=== PATIENT | male | born 1995 | race Caucasian/White ===

== ENCOUNTER 2020-01-30 12:54 | Emergency (ER) | payer BC, OTHER ==
[~2020-01-30] VITALS: Ht 175.2 cm; Wt 79.3 kg
[2020-01-30 13:01] VITALS: BP 134/96
[2020-01-30] MEDS ORDERED: CEPH500T PO (13:23)
--- NOTE | 2020-01-30 13:23 | ED Upper Extremity ---
General Stated Complaint: L ARM WOUND Source: patient Exam Limitations: no limitations History of Present Illness Date Seen by Provider: Jan 30, 2020 Time Seen by Provider: 13:01 Initial Comments To ER with a laceration to the volar radial side left wrist. He was gutting a deer when his knife slipped. Tetanus is up-to-date. Onset: just prior to arrival Severity: mild Pain/Injury Location: left wrist Modifying Factors: Worse With Movement Allergies and Home Medications Home Medications Cephalexin 500 Mg Tablet, 500 MG PO TID Prescribed by: CARLEY PORRAS on 01/30/20 1323 Patient Home Medication List Home Medication List Reviewed: Yes Review of Systems Constitutional: see HPI EENTM: see HPI Respiratory: no symptoms reported Cardiovascular: no symptoms reported Genitourinary: no symptoms reported Musculoskeletal: no symptoms reported Skin: no symptoms reported Psychiatric/Neurological: No Symptoms Reported Past Lnvpztg-[id number]-Nvvgdy Hx Patient Social History Recent Foreign Travel: No Contact w/Someone Who Travel: No Physical Exam Vital Signs Capillary Refill : Height, Weight, BMI Height: '" Weight: lbs. oz. kg; BMI Method: General Appearance: WD/WN, no apparent distress Respiratory: no respiratory distress, no accessory muscle use Shoulder: normal inspection, non-tender Elbow/Forearm: normal inspection, non-tender Wrist: Yes soft tissue tenderness (There is a 1 cm laceration without active bleeding to the volar radial side of the left wrist. Depth is dissecting his tissue. He has normal sensation and motor function of the radial nerve distribution of the dorsal aspect of the hand including the thumb and pointer finger. Normal wrist extension and flexion. Strong radial pulse. No evidence of large hematoma.) Hand: normal inspection, Left Neurologic/Tendon: normal sensation, normal motor functions, normal tendon functions Neurologic/Psychiatric: alert, normal mood/affect, oriented x 3 Skin: normal color, warm/dry This laceration was anesthetized with 2 mL of 1% lidocaine without epinephrine. Scrubbed with chlorhexidine/saline solution then irrigated with the same. Closed with 3 simple interrupted sutures size 5-0 Prolene. Departure Impression Primary Impression: Wrist laceration Qualified Codes: S61.512A - Laceration without foreign body of left wrist, initial encounter Disposition: HOME, SELF-CARE Condition: Stable Departure-Patient Inst. Decision time for Depature: 13:22 Referrals: NO,LOCAL PHYSICIAN (PCP/Family) Primary Care Physician Patient Instructions: Laceration Repair With Stitches (DC) Add. Discharge Instructions: 1. Stitches should be removed in about 7 days. You can shower letting water run over this starting tonight but do not soak it in water such as a hot tub bathtub or swimming pool until the stitches have been removed. Scripts Cephalexin (Cephalexin) 500 Mg Tablet 500 MG PO TID, #9 TAB 0 Refills Prov: CARLEY PORRAS APRN 01/30/20 CARLEY PORRAS APRN Jan 30, 2020 13:23
== END 2020-01-30 13:34 | disposition home or self-care (01) ==
LOC: ER 13:00
DX: S61.512A Laceration without foreign body of left wrist, initial encounter (principal); W26.0XXA Contact with knife, initial encounter